=== PATIENT | female | born 1985 | race Caucasian/White ===

== ENCOUNTER 2016-05-15 16:53 | Emergency (ER) | payer OTHER ==
--- NOTE | 2016-05-15 17:17 | ER Document Report ---
ED Medical Screen (RME) - General Stated Complaint: RIGHT KNEE PAIN Time seen by provider: 17:14 Mode of Arrival: Ambulatory Information source: Patient Notes: Patient complains of right knee pain for 1 week after working out. Lacey a pop at that time. Complains of increased pain and knee looks swollen. Patient denies prior history of knee injury. I have greeted and performed a rapid initial assessment of this patient. A comprehensive ED assessment and evaluation of the patient, analysis of test results and completion of the medical decision making process will be conducted by additional ED providers. TRAVEL OUTSIDE OF THE [place] IN LAST 30 DAYS: No - Related Data Allergies/Adverse Reactions: levofloxacin [From Levaquin] Allergy (Verified 05/15/16 17:15) Penicillins Allergy (Verified 05/15/16 17:15) Past Medical History - Immunizations Hx Diphtheria, Pertussis, Tetanus Vaccination: Yes Physical Exam - Vital signs Vitals: Temp Pulse Resp BP Pulse Ox 97.4 F 73 20 150/99 H 98 05/15/16 17:07 05/15/16 17:07 05/15/16 17:07 05/15/16 17:07 05/15/16 17:07 - Extremities Notes: Tender to palpation to lateral anterior right knee. Pain increases with range of motion. Course - Vital Signs Vital signs: Temp Pulse Resp BP Pulse Ox 97.4 F 73 20 150/99 H 98 05/15/16 17:07 05/15/16 17:07 05/15/16 17:07 05/15/16 17:07 05/15/16 17:07
--- NOTE | 2016-05-15 18:41 | ER Document Report ---
ED General - General Chief Complaint: Knee Injury Stated Complaint: RIGHT KNEE PAIN Mode of Arrival: Ambulatory Information source: Patient Notes: Patient is a 30 year old female who presents with right knee pain, swelling and ecchymosis that has been present for the past week. She states she was working out and felt a pop but denies any true injury. She reports pain worse when she wakes up the morning and continues throughout the day. Pain is described as throbbing and rated at 3 out of 5. She has tried ibuprofen at home with minimal relief. Denies prior injury to this knee. Denies any warmth, erythema or deformity. TRAVEL OUTSIDE OF THE [place] IN LAST 30 DAYS: No - Related Data Allergies/Adverse Reactions: levofloxacin [From Levaquin] Allergy (Verified 05/15/16 17:15) Penicillins Allergy (Verified 05/15/16 17:15) Past Medical History - General Information source: Patient - Social History Smoking Status: Unknown if Ever Smoked Chew tobacco use (# tins/day): No Frequency of alcohol use: None Drug Abuse: None Family History: Reviewed & Not Pertinent Patient has suicidal ideation: No Patient has homicidal ideation: No Renal/ Medical History: Denies: Hx Peritoneal Dialysis - Immunizations Hx Diphtheria, Pertussis, Tetanus Vaccination: Yes Review of Systems - Review of Systems Constitutional: See HPI EENT: No symptoms reported Cardiovascular: No symptoms reported Respiratory: No symptoms reported Gastrointestinal: No symptoms reported Genitourinary: No symptoms reported Female Genitourinary: No symptoms reported Musculoskeletal: See HPI Skin: No symptoms reported Hematologic/Lymphatic: No symptoms reported Neurological/Psychological: No symptoms reported Physical Exam - Vital signs Vitals: Temp Pulse Resp BP Pulse Ox 97.4 F 73 20 150/99 H 98 05/15/16 17:07 05/15/16 17:07 05/15/16 17:07 05/15/16 17:07 05/15/16 17:07 Interpretation: Hypertensive - Notes Notes: PHYSICAL EXAM: CONSTITUTIONAL: Alert and oriented, well-appearing and in no acute distress. Appears uncomfortable. HENT: Normocephalic, atraumatic. Moist mucous membranes. EYES: Pupils equal round and reactive to light, EOM intact. Sclera anicteric, conjunctiva are normal. No entrapment. HEART: Regular rate and rhythm without murmurs. LUNGS: CTAB and equal. No wheezes, rales or rhonchi. EXTREMITIES: Right knee - tender to palpation along lateral collateral ligament with ecchymosis noted and mild swelling. Pain with varus stress, negative valgus stress. Negative anterior/posterior drawer test. No palpable cords. No calf tenderness. No pitting edema. No cyanosis. Cap Refill <3 seconds. NEURO: Cranial nerves grossly intact. Normal sensory/motor exams. SKIN: Warm and dry. Normal turgor. No rashes or lesions noted. Course - Re-evaluation Re-evalutation: 05/15/16 19:14 Patient seen and evaluated. Exam consistent with sprain/strain to left collateral ligament of right knee. No evidence of effusion, cellulitis, deformity to right knee or compartment syndrome. No palpable cords or calf tenderness therefore low suspicion of DVT. X-ray negative for acute bony abnormality. Will give knee immobilizer, crutches and anti-inflammatories; Patient gave verbal agreement; discharged home in stable condition and instructed to follow-up with orthopedics. - Vital Signs Vital signs: Temp Pulse Resp BP Pulse Ox 97.4 F 73 20 150/99 H 98 05/15/16 17:07 05/15/16 17:07 05/15/16 17:07 05/15/16 17:07 05/15/16 17:07 - Diagnostic Test Radiology reviewed: Image reviewed, Reports reviewed Discharge - Discharge Clinical Impression: Sprain of lateral collateral ligament of knee Qualifiers: Encounter type: initial encounter Laterality: right Qualified Code(s): S83.421A - Sprain of lateral collateral ligament of right knee, initial encounter Condition: Stable Disposition: HOME, SELF-CARE Additional Instructions: Sprained Knee Your sprained knee results from a stretching or tearing of the ligaments which support the joint. This often results from a bending stress -- such as a twisting fall while skiing or a "clip" while playing football. The ligaments will require time and protection to heal adequately. A knee sprain can be quite serious, and should be taken seriously. The usual treatment is splinting of the knee, ice packs, and elevation. You shouldn't walk on the leg if weightbearing is painful. Unless the sprain is obviously a minor one, follow-up exam is very important. The degree of ligament damage often cannot be fully assessed at first due to muscle spasm and pain. Your treatment plan may change based on the physician's findings during your follow-up examination. Call the doctor at once if there is severe swelling, increasing pain, numbness, or other alarming symptoms. Knee Immobilizing Splint The knee immobilizing splint will protect the injury while healing begins. This type of splint does not allow the knee to bend at all. No running or sports will be possible. If the splint allows painfree walking, it's giving adequate protection. If there is still significant pain, crutches may be needed as well. Don't do anything that hurts. Adjusted the splint, if necessary. The stiffeners on the sides are attached with Velcro, so they can be easily moved to adjust for thigh and calf size. If you need help with these adjustments, come back. You will lose muscle strength in the thigh while using this splint. The doctor will advise you if it's safe to do isometric knee exercises while you use it. Oral Narcotic Medication You have been given a prescription for pain control. This medication is a narcotic. It's best taken with food, as nausea can result if taken on an empty stomach. Don't operate machinery or drive within six hours of taking this medication. Do not combine this medicine with alcohol, or with any medication which can cause sedation (such as cold tablets or sleeping pills) unless you get permission from the physician. Narcotics tend to cause constipation. If possible, drink plenty of fluids and eat a diet high in fiber and fruits. Anti-Inflammatory Medication You have received a prescription for an antiinflammatory agent. This is an excellent, safe drug for pain control. In addition, it has potent antiinflammatory effects which are beneficial, especially in the treatment of injuries, arthritis, or tendonitis. It's best to take this medicine with food. Persons with ulcer disease or allergy to aspirin should notify their physician of this before taking this drug. Take the medication exactly as prescribed. Don't take additional doses unless instructed to do so by your doctor. If you develop wheezing, shortness of breath, hives, faintness, stomach pain, vomiting, or dark black stools, return for re-evaluation at once. Return immediately for any new or worsening symptoms. Follow-up with primary care provider and orthopedic doctor, call tomorrow to make followup appointment. Prescriptions: Tramadol HCl [Ultram] 50 mg PO Q8HP PRN #10 tablet PRN Reason: Meloxicam [Mobic 15 mg Tablet] 15 mg PO DAILY #30 tablet Forms: Elevated Blood Pressure, Return to Work
[2016-05-15 20:01] VITALS: BP 146/86
== END 2016-05-15 19:53 | disposition home or self-care (01) ==
LOC: ER 16:53
DX: S83.421A Sprain of lateral collateral ligament of right knee, initial encounter (principal); M25.561 Pain in right knee; X58.XXXA Exposure to other specified factors, initial encounter; Z88.1 Allergy status to other antibiotic agents; Z88.0 Allergy status to penicillin
CPT/HCPCS: 99283; 73564; L1830